=== PATIENT | male | born 1960 | race Caucasian/White ===

== ENCOUNTER 2016-08-28 15:31 | Emergency (ER) | payer BC ==
[~2016-08-28 15:31] MED LIST: ATEN50 PO; BYSTOLIC5 MG PO; CARDCD180 PO; CARTIA XT180 MG/24 PO; K500 PO; LEVAQUIN750 MG PO; PRILO PO; SLEEP AID25 MG PO; TEARS NATURA OPH; TIAZA1 PO; Z300 PO
[2016-08-28 16:22] LABS: BASOPHILS 0.5 %; BASOPHILS ABSOLUTE 0.03 10/3/uL (0.0-0.16); EOSINOPHILS 2.4 %; EOSINOPHILS ABSOLUTE 0.15 10/3/uL (0.0-0.53); HEMATOCRIT 45.3 % (40.0-51.0); HEMOGLOBIN 15.3 g/dL (13.6-17.8); IMMATURE GRANULOCYTES 0.2 %; IMMATURE GRANULOCYTES ABSOLUTE 0.01 10/3/uL (0.0-0.11); LYMPHOCYTES ABSOLUTE 1.17 10/3/uL (0.67-4.30); MEAN CORPUS HGB CONC 33.8 g/dL (32.0-36.0); MEAN CORPUSCULAR HEMOGLOB 30.3 pg (26.0-34.0); MEAN CORPUSCULAR VOLUME 89.7 fL (80-100); MEAN PLATELET VOLUME 9.9 fL (9.2-13.0); MONOCYTES 7.3 %; MONOCYTES ABSOLUTE 0.45 10/3/uL (0.21-1.20); NEUTROPHILS 70.6 %; NEUTROPHILS ABSOLUTE 4.35 10/3/uL (2.02-8.40); PLATELET COUNT 210 10/3/uL (150-400); RBC DISTRIBUTION WIDTH 14.6 % (12.0-16.0); RED CELL COUNT 5.05 10/6/uL (4.7-6.1); WHITE BLOOD CELLS 6.2 10/3/uL (4.5-10.5)
[2016-08-28 16:24] LABS: MANUAL DIFF NO %
[2016-08-28 16:44] LABS: ASCORBIC ACID (UR NOT ORDER) NEG (NEG); BILIRUBIN, URINE NEGATIVE (NEG); ER URINALYSIS TAT 0 Hrs 20 Mins; KETONE, URINE NEGATIVE (NEG); LEUKOCYTE ESTERASE(NOT OR NEG (NEG); NITRITE (URINE) NEG (NEG); WBC (NOT ORDERED) (RFLEX) 1 (0-5)
[2016-08-28 16:53] LABS: BUN (BLOOD UREA NITROGEN) 19 MG/DL (6-23); CALCIUM, SERUM 8.8 MG/DL (8.5-10.4); CHLORIDE, SERUM 105 MMOL/L (96-112); CO2 (CARBON DIOXIDE) 28 MMOL/L (24-34); CREATININE 1.36 MG/DL (0.70-1.30); GFR AFRICAN AMERICAN 67 ML/MIN (>=60); GFR NON AFRICAN AMERICAN 58 ML/MIN (>=60); GLUCOSE, SERUM 100 MG/DL (60-99); POTASSIUM, SERUM 4.3 MMOL/L (3.5-5.3); SGOT(AST) 16 U/L (5-40); SGPT(ALT) 40 U/L (5-65); SODIUM, SERUM 140 MMOL/L (135-148); TOTAL BILIRUBIN 0.4 MG/DL (0-1.2); TOTAL PROTEIN 7.4 G/DL (6.0-8.5)
[2016-08-28 16:54] LABS: A/G RATIO 1.2 (0.7-1.9); ALKALINE PHOSPHATASE 88 U/L (45-117); GLOBULIN 3.4 G/DL (2.5-4.1)
[2016-11-26] MEDS ORDERED: ATEN50 PO (00:22)
[2016-11-26] MEDS ORDERED: K500 PO (00:22)
[2016-11-26] MEDS ORDERED: L20 PO (00:22)
[2016-11-26] MEDS ORDERED: PRILO PO (00:23)
[2016-11-26] MEDS ORDERED: Z300 PO (00:23)
[2016-11-26] MEDS ORDERED: CARDCD360 PO (00:23)
[2016-11-26] MEDS ORDERED: SLEEP AID25 MG PO (00:24)
[2016-12-01] MEDS ORDERED: LOVENOX150 SC (10:58)
[2016-12-01] MEDS ORDERED: ELIQUIS 5 MG TAB5 MG PO (10:59)
[2016-12-01] MEDS ORDERED: ELIQUIS 5 MG TAB5 MG (11:01)
[2016-12-12] MEDS ORDERED: LOVENOX (11:24)
[2016-12-14] MEDS ORDERED: NORCO1 TA2 PO (08:01)
== END 2016-08-28 20:35 | disposition home or self-care (01) ==
LOC: ER 15:31
PROVIDERS: Emergency Medicine
DX: M54.5 Low back pain (principal); Z87.442 Personal history of urinary calculi; Z88.0 Allergy status to penicillin; Z88.2 Allergy status to sulfonamides; Z79.899 Other long term (current) drug therapy
CPT/HCPCS: 80053; 81001; 83690; 85025; 96374; 99283; J1170; J2405